=== PATIENT | female | born 1965 | race Two or more races ===

== ENCOUNTER 2016-08-28 23:09 | Emergency (ER) | payer OTHER ==
[~2016-08-28] VITALS: Ht 162.6 cm; Wt 77.0 kg
[2016-08-28 23:29] VITALS: Ht 162.6 cm; Wt 77.0 kg
[2016-08-29] MEDS ORDERED: ONDANSETRON 4 MG INJ IV STA (00:27)
[2016-08-29] MEDS ORDERED: SOD CHLORIDE 0.9% 1,000 ML IV STA (00:27)
[2016-08-29] MEDS ORDERED: HYDROmorphONE 1 MG/ML SYG IV STA (00:27)
[2016-08-29] MEDS ORDERED: METO50TA16 PO (00:30)
[2016-08-29] MEDS ORDERED: morphine 4 MG/ML VIAL IV STA (00:31)
--- NOTE | 2016-08-29 00:32 | ERD ---
ER Documentation Chief Complaint Date/Time DATE: 08/29/16 TIME: 00:29 Chief Complaint BILATERAL FLANK PAIN AND ABDOMINAL PAIN X 5 DAYS HPI 50-year-old female presents here in emergency department for complaints of bilateral flank pain radiating to the generalized abdomen for 5 days, described the pain as sharp pain, 8/10 scale, is accompanied with nausea. Patient denies any dysuria and hematuria. Patient denies any fever or chills. Patient denies any diarrhea or constipation. Patient denies any sick contacts. Patient did not take any medications for pain. ROS All systems reviewed and are negative except as per history of present illness. Medications Home Meds Active Scripts Ciprofloxacin Hcl* (Ciprofloxacin Hcl*) 500 Mg Tablet, 500 MG PO BID for 7 Days , TAB Prov:MAGGIE NEWMAN [employer]ATRICAL RIGGER 08/29/16 Hydrocodone/Acetaminophen ([place] 5-325 Tablet) 1 Each Tablet, 1 TAB PO Q6H Y for SEVERE PAIN LEVEL 7-10, #20 TAB Prov:MAGGIE NEWMAN NP 08/29/16 Ibuprofen* (Motrin*) 600 Mg Tab, 600 MG PO Q6H Y for PAIN AND OR ELEVATED TEMP, #30 TAB Prov:MAGGIE NEWMAN [employer]ATRICAL RIGGER 08/29/16 Reported Medications Metoprolol Succinate* (Toprol XL*) Unknown Strength Tab.er.24h, PO DAILY, #20 TAB 08/29/16 Allergies Allergies: Coded Allergies: No Known Allergy (Unverified , 08/29/14) PMhx/Soc Medical and Surgical Hx: pt denies Surgical Hx History of Surgery: No Anesthesia Reaction: No Hx Neurological Disorder: No Hx Respiratory Disorders: No Hx Cardiac Disorders: No Hx Psychiatric Problems: No Hx Miscellaneous Medical Probl: Yes (HTN) Hx Alcohol Use: No Hx Substance Use: No Hx Tobacco Use: No FmHx Family History: No coronary disease, No diabetes, No other Physical Exam Vitals Vital Signs Date Time Temp Pulse Resp B/P Pulse Ox O2 Delivery O2 Flow Rate FiO2 08/28/16 23:29 98.0 88 16 153/89 98 Physical Exam GENERAL: The patient is well developed and appropriate for usual state of health, in no apparent distress. CHEST: Clear to auscultation bilaterally. There are no rales, wheezes or rhonchi. HEART: Regular rate and rhythm. No murmurs, clicks, rubs or gallops. No S3 or S4. ABDOMEN: Soft, nontender and nondistended. Good bowel sounds. No rebound or guarding. No gross peritonitis. No gross organomegaly or masses. No Rowan sign or McBurney point tenderness. BACK: No midline or flank tenderness. EXTREMITIES: Equal pulses bilaterally. There is no peripheral clubbing, cyanosis or edema. No focal swelling or erythema. Full range of motion. Grossly neurovascularly intact. NEURO: Alert and oriented. Cranial nerves 2-12 intact. Motor strength in all 4 extremities with 5/5 strength. Sensation grossly intact. Normal speech and gait. SKIN: There is no apparent rash or petechia. The skin is warm and dry. HEMATOLOGIC AND LYMPHATIC: There is no evidence of excessive bruising or lymphedema. No gross cervical, axillary, or inguinal lymphadenopathy. Result Diagram: 08/29/16 0045 08/29/16 0045 Results 24 hrs Laboratory Tests Test 08/29/16 00:45 Alanine Aminotransferase (ALT/SGPT) 30IU/L Albumin 4.3g/dl Albumin/Globulin Ratio 1.19 Alkaline Phosphatase 73IU/L Anion Gap 19 Aspartate Amino Transf (AST/SGOT) 30IU/L Basophils # 0.010^3/ul Basophils % 0.3% Blood Urea Nitrogen 10mg/dl Calcium Level 9.6mg/dl Carbon Dioxide Level 28mmol/L Chloride Level 105mmol/L Creatinine 0.67mg/dl Direct Bilirubin 0.00mg/dl Eosinophils # 0.310^3/ul Eosinophils % 2.1% Globulin 3.60g/dl Glucose Level 92mg/dl Hematocrit 37.3% Hemoglobin 12.3g/dl Indirect Bilirubin 0.1mg/dl Lipase 126U/L Lymphocytes # 3.810^3/ul Lymphocytes % 32.4% Mean Corpuscular Hemoglobin 27.0pg Mean Corpuscular Hemoglobin Concent 33.0g/dl Mean Corpuscular Volume 81.8fl Mean Platelet Volume 9.7fl Monocytes # 0.710^3/ul Monocytes % 6.0% Neutrophils # 6.910^3/ul Neutrophils % 58.9% Nucleated Red Blood Cells # 0.010^3/ul Nucleated Red Blood Cells % 0.0/100WBC Platelet Count 93939^3/UL Potassium Level 4.3mmol/L Red Blood Count 4.5610^6/ul Red Cell Distribution Width 13.6% Sodium Level 148mmol/L Total Bilirubin 0.1mg/dl Total Protein 7.9g/dl Urine Bacteria FEW Urine Bilirubin NEGATIVE Urine Clarity CLEAR Urine Color LT. YELLOW Urine Glucose NEGATIVE% Urine Hemoglobin NEGATIVE Urine Ketones NEGATIVE Urine Leukocyte Esterase TRACE Urine Microscopic RBC 0-2/HPF Urine Microscopic WBC 0-2/HPF Urine Nitrite NEGATIVE Urine Specific [place] 1.015 Urine Squamous Epithelial Cells MODERATE Urine Total Protein NEGATIVE Urine Urobilinogen 0.2 E.U./dL Urine pH 6.0 White Blood Count 11.710^3/ul Current Medications Medications (Trade) Dose Ordered Sig/Torrie Route PRN Reason Start Time Stop Time Status Last Admin Dose Admin Sodium Chloride (NS) 1,000 ml @ 1,000 mls/hr Q1H STAT IV 08/29/16 00:27 08/29/16 01:26 DC 08/29/16 01:05 Hydromorphone HCl (Dilaudid) 1 mg ONCE STAT IV 08/29/16 00:27 08/29/16 00:32 DC Ondansetron HCl (Zofran Inj) 4 mg ONCE STAT IV 08/29/16 00:27 08/29/16 00:29 DC 08/29/16 01:06 Morphine Sulfate (morphine) 4 mg ONCE STAT IV 08/29/16 00:31 08/29/16 00:33 DC 08/29/16 01:06 Patient was given medication for pain here in emergency department, after treatment, patient verbalized feeling much better. Patient's pain is improved.Patient was given Zofran here in the emergency department. After treatment, patient was able to tolerate po fluids here in the emergency department without any vomiting. There is no signs and symptoms of dehydration. Normal saline IV bolus was given here in emergency department for rehydration, patient tolerated IV fluids. PROCEDURE: CT abdomen and pelvis without intravenous contrast. CLINICAL INDICATION: Pain. TECHNIQUE: CT of the abdomen/pelvis was performed utilizing axial images with reconstructions in sagittal and coronal planes. The administered radiation dose is CTDI 16 mGy, DLP 907 mGy-cm. COMPARISON: No pertinent prior examinations were submitted for comparison. FINDINGS: Visualized Chest: The visualized lung bases are clear. Abdomen: The spleen, pancreas, gallbladder,and adrenal glands are unremarkable. The liver is diffusely decreased in attenuation, compatible with hepatic steatosis. The kidneys are without hydronephrosis. No definite urinary calculi are seen. There is no evidence of bowel obstruction. The appendix is normal. No intra- abdominal free air is seen. There is no evidence of intra-abdominal adenopathy or free fluid. Pelvis: Markedly enlarged lymph nodes are seen along the right iliac chain region, for example on image 151 of series 3, a lymph node measures up to 2.8 cm in short axis. The uterus and ovaries are without enlargement. The urinary bladder is unremarkable. There is no pelvic free fluid. Osseous structures: Unremarkable. IMPRESSION: Marked right pelvic adenopathy which is nonspecific. Hepatic steatosis. RPTAT: HIKT .Jose Jones MD, MD Date Time Electronically viewed and signed by .Jose Jones MD, MD on 08/29/2016 02:18 .T/ CC: MAGGIE NEWMAN NP PROCEDURE: ULTRASOUND PELVIS CLINICAL INDICATION: 50-year-old female with abdominal pain. TECHNIQUE: Multiple sonographic images of the pelvis were obtained utilizing a transabdominal and endovaginal technique. The images were reviewed on a PACS workstation. COMPARISON: CT abdomen/pelvis August 29, 2016. FINDINGS: The uterus is visualized and measures 7.3 x 2.7 x 4.6 cm. The endometrial echo complex is within normal limits and measures 2.0 mm. There is no evidence for free fluid. The right ovary has a normal echotexture and measures 2.8 x 1.2 x 2.1 cm. The left ovary has a normal echotexture and measures 2.9 x 1.5 x 1.6 cm. There is flow identified within the ovaries bilaterally. No adnexal masses are noted. IMPRESSION: Unremarkable pelvic ultrasound. .Lopez Tarango MD, MD Date Time Electronically viewed and signed by .Lopez Tarango MD, MD on 08/29/2016 04:34 .M/ Procedures/MDM Medical Decision Making: patient's pain most likely is consistent with musculoskeletal pain, can be also viral, nonspecific at this time. There is low suspicion for abdominal emergencies at this time. Patients abdominal exam is normal at this time. Patients radiology exam does not show any abdominal emergencies at this time. There is low suspicion for appendicitis, cholecystitis , abdominal aortic aneurysms or peritonitis at this time. There is low suspicion for sepsis. Patient appears well and is hemodynamically stable. She does trace of leukocytes in the urine, I doubt that this is pyelonephritis that may be early cystitis. Disposition: Home. Condition: Stable Prescription [place], ibuprofen, Zofran ciprofloxacin Instructions: Patient is advised to take medications as prescribed. Patient is advised to rest, increase fluid intake and do brat diet for next 1-2 days and progress as tolerated, avoid heavy lifting. Patient is advised that if symptoms are worse, severe abdominal pain, uncontrolled vomiting, high fever, severe flank pain, worst signs and symptoms, to return to the emergency department immediately. Otherwise, patient can follow up with primary care doctor in 5-7 days. Departure Diagnosis: Primary Impression: Flank pain Additional Impressions: Abdominal pain Abdominal location: generalized Qualified Code: R10.84 - Generalized abdominal pain Cystitis Condition: Stable Patient Instructions: Abdominal Pain, Flank Pain, Uncertain Cause Additional Instructions: Patient is advised to take medications as prescribed. Patient is advised to rest , increase fluid intake and do brat diet for next 1-2 days and progress as tolerated, avoid heavy lifting. Patient is advised that if symptoms are worse, severe abdominal pain, uncontrolled vomiting, high fever, severe flank pain, worst signs and symptoms, to return to the emergency department immediately. Otherwise, patient can follow up with primary care doctor in 5-7 days. MAGGIE NEWMAN NP Aug 29, 2016 00:32
[2016-08-29 01:19] LABS: ADD SCAN DIFF NO
[2016-08-29 01:22] LABS: BASOPHILS % 0.3 % (0.0-2.0); EOSINOPHILS # 0.3 10^3/ul (0.0-0.5); EOSINOPHILS % 2.1 % (0.0-7.0); HEMATOCRIT 37.3 % (37.0-47.0); HEMOGLOBIN 12.3 g/dl (12.0-16.0); LYMPHOCYTES # 3.8 10^3/ul (0.8-2.9); LYMPHOCYTES % 32.4 % (15.0-51.0); MEAN CORPUSCULAR VOLUME 81.8 fl (82.0-101.0); MEAN PLATELET VOLUME 9.7 fl (7.4-10.4); MONOCYTE # 0.7 10^3/ul (0.3-0.9); NEUTROPHIL # 6.9 10^3/ul (1.6-7.5); NEUTROPHILS % 58.9 % (39.0-77.0); PLATELET COUNT 391 10^3/UL (140-415); RED BLOOD COUNT 4.56 10^6/ul (4.20-5.40); RED CELL DISTRIBUTION WIDTH 13.6 % (11.5-14.5); WHITE BLOOD COUNT 11.7 10^3/ul (4.8-10.8)
[2016-08-29 01:25] LABS: ADD UMIC YES; URINE BILIRUBIN (Dip) NEGATIVE (NEGATIVE); URINE BLOOD (Dip) NEGATIVE (NEGATIVE); URINE COLOR LT. YELLOW (YELLOW); URINE GLUCOSE (Dip) NEGATIVE (NEGATIVE); URINE KETONES (Dip) NEGATIVE (NEGATIVE); URINE LEUKOCYTE ESTERASE (Dip) TRACE (NEGATIVE); URINE NITRITE (Dip) NEGATIVE (NEGATIVE); URINE TOTAL PROTEIN (Dip) NEGATIVE (NEGATIVE); URINE UROBILINOGEN (Dip) 0.2 E.U./dL (0.1-1.0)
[2016-08-29 01:34] LABS: SQUAMOUS EPITHELIAL CELL,UR MODERATE; URINE RBCS 0-2 /HPF (0)
[2016-08-29 01:35] LABS: BACTERIA,URINE FEW
[2016-08-29 01:38] LABS: ALBUMIN 4.3 g/dl (3.3-4.9)
[2016-08-29 01:39] LABS: POTASSIUM 4.3 mmol/L (3.5-5.1)
[2016-08-29 01:41] LABS: ALBUMIN/GLOBULIN RATIO 1.19; BILIRUBIN,INDIRECT 0.1 mg/dl (0-1.1); BILIRUBIN,TOTAL 0.1 mg/dl (0.2-1.3); CREATININE 0.67 mg/dl (0.44-1.00); TOTAL PROTEIN 7.9 g/dl (6.1-8.1)
[2016-08-29 01:42] LABS: CALCIUM 9.6 mg/dl (8.4-10.2)
--- NOTE | 2016-08-29 02:18 | RADRPT ---
PROCEDURE: CT abdomen and pelvis without intravenous contrast. CLINICAL INDICATION: Pain. TECHNIQUE: CT of the abdomen/pelvis was performed utilizing axial images with reconstructions in s agittal and coronal planes. The administered radiation dose is CTDI 16 mGy, DLP 907 mGy-cm. COMPARISON: No pertinent prior examinations were submitted for comparison. FINDINGS: Visualized Chest: The visualized lung bases are clear. Abdomen: The spleen, pancreas, gallbladder,and adrenal glands are unremarkable. The liver is diffusely dec reased in attenuation, compatible with hepatic steatosis. The kidneys are without hydronephrosis. No definite urinary calculi are seen. There is no evidence of bowel obstruction. The appendix is normal. No intra-abdominal free air is seen. There is no evidence of intra-abdominal adenopathy or free fluid. Pelvis: Markedly enlarged lymph nodes are seen along the right iliac chain region, for example on image 151 of series 3, a lymph node measures up to 2.8 cm in short axis. The uterus and ovaries are without e nlargement. The urinary bladder is unremarkable. There is no pelvic free fluid. Osseous structures: Unremarkable. IMPRESSION: Marked right pelvic adenopathy which is nonspecific. Hepatic steatosis. RPTAT: HIKT .Jose Jones MD, MD Date Time Electronically viewed and signed by .Jose Jones MD, MD on 08/29/2016 02:18 .T/
--- NOTE | 2016-08-29 04:34 | RADRPT ---
PROCEDURE: ULTRASOUND PELVIS CLINICAL INDICATION: 50-year-old female with abdominal pain. TECHNIQUE: Multiple sonographic images of the pelvis were obtained utilizing a transabdominal and endovaginal technique. The images were reviewed on a PACS workstation. COMPARISON: CT abdomen/pelvis August 29, 2016. FINDINGS: The uterus is visualized and measures 7.3 x 2.7 x 4.6 cm. The endometrial echo complex is within nor mal limits and measures 2.0 mm. There is no evidence for free fluid. The right ovary has a normal ec hotexture and measures 2.8 x 1.2 x 2.1 cm. The left ovary has a normal echotexture and measures 2.9 x 1.5 x 1.6 cm. There is flow identified within the ovaries bilaterally. No adnexal masses are no kwasi. IMPRESSION: Unremarkable pelvic ultrasound. .Lopez Tarango MD, Date Time Electronically viewed and signed by .Lopez Tarango MD, on 08/29/2016 04:34 .M/
[2016-08-29] MEDS ORDERED: HYDR-906 PO (04:48)
[2016-08-29] MEDS ORDERED: IBUP-1542 PO (04:48)
[2016-08-29] MEDS ORDERED: CIPR500T4 PO (04:58)
[2016-08-29 05:12] VITALS: BP 124/73; PULSE 83; RESP 16
== END 2016-08-29 05:13 | disposition home or self-care (01) ==
LOC: FTE 23:09
DX: R10.84 Generalized abdominal pain (principal); N30.90 Cystitis, unspecified without hematuria; R11.0 Nausea; I10 Essential (primary) hypertension
CPT/HCPCS: 36415; 74176; 76856; 80053; 81001; 83690; 85025; 96374; 96375; J2270; J2405; J7030; Z7502; 81003